=== PATIENT | female | born 1980 | race Caucasian/White ===

== ENCOUNTER → 2016-09-20 | Outpatient (CLI) | payer OTHER ==
[2016-09-20 13:13] LABS: BLOOD UREA NITROGEN 13 mg/dl (7-18); BUN/CREATININE RATIO 12.2 (10-20); CARBON DIOXIDE 27 mmol/L (21-32); CHLORIDE 106 mmol/L (98-107); GLUCOSE 99 mg/dl (70-99); POTASSIUM 3.6 mmol/L (3.5-5.1); SODIUM 140 mmol/L (136-145)
[2016-09-20 13:23] LABS: CALCIUM 9.3 mg/dl (8.5-10.1)
== END | disposition home or self-care (01) ==
LOC: C.LABPBG 08:04
PROVIDERS: ATTEND Surgery
DX: Z52.4 Kidney donor (principal); Z01.818 Encounter for other preprocedural examination

== ENCOUNTER → 2016-09-23 | Outpatient (CLI) | payer OTHER ==
[~2016-09-23] MED LIST: GADAVIST IV PRN
--- NOTE | 2016-09-25 14:30 | DIAGNOSTIC IMAGING REPORT ---
ABDOMINAL MRI WITH AND WITHOUT INTRAVENOUS CONTRAST HISTORY: Abnormal pancreas on prior study. KIDNEY LIVING DONOR PRE-OP TECHNIQUE: Multiplanar multisequence MRI of the abdomen was performed both before and after the intravenous administration of contrast. COMPARISON STUDY: Outside hospital CT 08/14/2016. FINDINGS: The lung bases are clear. The liver, adrenal glands, spleen, gallbladder, kidneys, and pancreas are unremarkable. Normal caliber common bile duct. No retroperitoneal lymphadenopathy. The visualized loops of bowel show no wall thickening or obstruction. The main pancreatic duct is normal in course and caliber. No abnormal enhancement. There are single bilateral renal veins and arteries which appear patent. IMPRESSION: Normal abdominal MRI. Specifically, the pancreas is unremarkable. Electronically signed by: Dave Bolivar M.D. 09/25/2016 2:29 PM Dictated Date/Time: 09/23/2016 1:26 PM
== END | disposition home or self-care (01) ==
LOC: C.MRI 11:50
PROVIDERS: ATTEND Family Medicine
DX: Z01.818 Encounter for other preprocedural examination (principal)

== ENCOUNTER → 2016-10-30 | Outpatient (CLI) | payer OTHER ==
[2016-10-31 18:59] LABS: ALBUMIN 3.7 G/DL (3.8-4.8); GAMMA GLOBULIN 1.2 G/DL (0.8-1.7); TOTAL PROTEIN 6.7 G/DL (6.2-8.3)
== END | disposition home or self-care (01) ==
LOC: C.LABPBG 08:00
PROVIDERS: ATTEND Surgery
DX: Z52.4 Kidney donor (principal)